=== PATIENT | male | born 1990 | race Two or more races ===

== ENCOUNTER 2018-07-04 19:37 | Emergency (ER) | payer OTHER ==
[~2018-07-04] VITALS: Ht 182.9 cm; Wt 61.2 kg
== END 2018-07-04 22:42 | disposition home or self-care (01) ==
LOC: ER 19:37
DX: B34.9 Viral infection, unspecified (principal); R50.9 Fever, unspecified; B27.80 Other infectious mononucleosis without complication

== ENCOUNTER 2019-11-04 08:30 | Emergency (ER) | payer OTHER ==
[~2019-11-04] VITALS: Ht 172.7 cm; Wt 79.4 kg
== END 2019-11-04 09:33 | disposition home or self-care (01) ==
LOC: ER 08:30
DX: J35.01 Chronic tonsillitis (principal)

== ENCOUNTER 2024-07-25 23:16 | Emergency (ER) | payer OTHER | END 2024-07-26 | disposition left against medical advice (07) | LOC: ER 23:18 | DX: Z53.21 Procedure and treatment not carried out due to patient leaving prior to being seen by health care provider (principal) ==

== ENCOUNTER 2024-10-07 22:23 | Emergency (ER) | payer OTHER ==
[~2024-10-07] VITALS: Ht 170.2 cm; Wt 72.6 kg
[2024-10-07 22:37] VITALS: BP 132/82; O2SAT 100
[2024-10-07] MEDS ORDERED: GUAIFENESIN 200 MG/10 ML BLIST.PACK PO ONE (23:45)
[2024-10-07] MEDS ORDERED: GUAIFENESIN/DEXTROMETHORPHAN 100MG/10ML BLIST.PACK PO ONE (23:54)
[2024-10-08 00:09] LABS: HEMOGLOBIN 12.6 g/dL (13-16.00); MEAN CELL VOLUME 84.1 fL (80.0-100.00); MEAN CORPUSCULAR HEMOGLOBIN 27.3 pg (27.00-32.0); MEAN CORPUSCULAR HGB CONC 32.4 g/dl (32.0-36.0); PLATELET COUNT 198 K/uL (150-450); RED BLOOD COUNT 4.63 M/uL (4.00-6.00); RED CELL DISTRIBUTION WIDTH 13.9 % (11.5-14.5)
== END 2024-10-08 01:23 | disposition home or self-care (01) ==
LOC: ER 22:26
PROVIDERS: Preventive Medicine Public Health & General Preventive Medicine
DX: R53.81 Other malaise (principal); J10.1 Influenza due to other identified influenza virus with other respiratory manifestations; Z20.822 Contact with and (suspected) exposure to COVID-19

== ENCOUNTER 2025-08-12 06:36 | Emergency (ER) | payer OTHER ==
[~2025-08-12] VITALS: Ht 167.6 cm; Wt 82.1 kg
[2025-08-12] MEDS ORDERED: CLINDAMYCIN PHOSPHATE 150 MG/ML (600mg) IV ONE (07:15)
[2025-08-12] MEDS ORDERED: 0.9 % SODIUM CHLORIDE 500 ML IV ONE (07:15)
[2025-08-12] MEDS ORDERED: DEXAMETHASONE SODIUM PHOSPHATE 4 MG/ML VIAL IV ONE (07:15)
[2025-08-12] MEDS ORDERED: CLINDAMYCIN PHOSPHATE 150 MG/ML (300mg) ONE (07:21)
[2025-08-12] MEDS ORDERED: KETOROLAC TROMETHAMINE 30 MG VIAL ONE (07:21)
[2025-08-12] MEDS ORDERED: DEXAMETHASONE SODIUM PHOSPHATE 4 MG/ML VIAL ONE (07:22)
[2025-08-12] MEDS ORDERED: KETOROLAC TROMETHAMINE 30 MG VIAL IU ONE (07:30)
[2025-08-12 08:18] LABS: BASO % 0.1 % (0.1-1.2); EOS # 0.46 (0.04-0.54); EOS % 5.3 % (0.7-7.0); LYMPH # 2.05 (1.18-3.74); LYMPH % 23.8 % (19.3-53.1); MEAN PLATELET VOLUME 9.60 fl (9.4-12.4); MONO # 0.77 (0.24-0.82); MONO % 8.9 % (4.7-12.5); NEUT # 5.32 (1.56-6.13); NEUT % 61.8 % (34.0-71.1); RED CELL DISTRIBUTION WIDTH 13.1 % (11.6-14.4)
[2025-08-12 09:14] LABS: COVID-19 AG NEGATIVE (NEGATIVE)
[2025-08-12 09:39] LABS: BUN CREA RATIO 8.0 (7.0-25.0); CREATININE SERUM 0.8 mg/dL (0.70-1.30); GFR 112.03; GLUCOSE FASTING 90.0 mg/dL (65-100); OSMOLALITY SERUM 280.0 MOSM/KG (275-295)
[2025-08-12 12:39] VITALS: BP 137/76; O2SAT 97
== END 2025-08-12 12:40 | disposition home or self-care (01) ==
LOC: ER 06:37
PROVIDERS: Emergency Medicine
DX: J02.8 Acute pharyngitis due to other specified organisms (principal); Z20.822 Contact with and (suspected) exposure to COVID-19; J35.2 Hypertrophy of adenoids; J34.1 Cyst and mucocele of nose and nasal sinus; J34.2 Deviated nasal septum

== ENCOUNTER 2025-08-13 23:15 | Emergency (ER) | payer OTHER ==
[~2025-08-13] VITALS: Ht 167.6 cm; Wt 84.8 kg
[2025-08-13 23:45] VITALS: BP 154/87; O2SAT 97
[2025-08-14] MEDS ORDERED: KETOROLAC TROMETHAMINE 30 MG VIAL IU ONE (00:45)
[2025-08-14] MEDS ORDERED: CEFTRIAXONE SODIUM 1,000 MG VIAL IV ONE (00:45)
[2025-08-14] MEDS ORDERED: FAMOTIDINE/PF 20 MG/2 ML VIAL IV ONE (00:45)
[2025-08-14] MEDS ORDERED: DEXAMETHASONE SODIUM PHOSP/PF 10 MG/ML VIAL IV ONE (00:45)
[2025-08-14] MEDS ORDERED: FAMOTIDINE/PF 20 MG/2 ML VIAL ONE (00:59)
[2025-08-14] MEDS ORDERED: CEFTRIAXONE SODIUM 1,000 MG VIAL ONE (00:59)
[2025-08-14] MEDS ORDERED: KETOROLAC TROMETHAMINE 30 MG VIAL ONE (00:59)
[2025-08-14 02:00] LABS: BASO % 0.2 % (0.1-1.2); EOS # 0.06 (0.04-0.54); EOS % 0.6 % (0.7-7.0); LYMPH # 2.30 (1.18-3.74); LYMPH % 22.9 % (19.3-53.1); MEAN PLATELET VOLUME 9.40 fl (9.4-12.4); MONO # 1.11 (0.24-0.82); MONO % 11.1 % (4.7-12.5); NEUT # 6.51 (1.56-6.13); NEUT % 64.9 % (34.0-71.1); RED CELL DISTRIBUTION WIDTH 13.3 % (11.6-14.4)
[2025-08-14 02:43] LABS: ERYTHROCYTE SEDIMENTATION RATE 109 mm/hr (0-15)
[2025-08-14 03:59] LABS: BUN CREA RATIO 9.0 (7.0-25.0); CREATININE SERUM 0.97 mg/dL (0.70-1.30); GFR 89.69; GLUCOSE FASTING 137.0 mg/dL (65-100); OSMOLALITY SERUM 282.0 MOSM/KG (275-295)
== END 2025-08-14 03:07 | disposition home or self-care (01) ==
LOC: ER 23:15
PROVIDERS: General Practice
DX: J03.80 Acute tonsillitis due to other specified organisms (principal)